=== PATIENT | female | born 1980 ===

== ENCOUNTER 2021-04-10 09:38 | Outpatient (CLI) | payer OTHER | END 2021-04-10 11:53 | disposition home or self-care (01) | LOC: PRENATAL 09:38 | PROVIDERS: ATTEND Obstetrics & Gynecology Maternal & Fetal Medicine | DX: O35.0XX1 Maternal care for (suspected) central nervous system malformation in fetus, fetus 1 (principal); O35.3XX1 Maternal care for (suspected) damage to fetus from viral disease in mother, fetus 1; O98.512 Other viral diseases complicating pregnancy, second trimester; O09.522 Supervision of elderly multigravida, second trimester; Z36.89 Encounter for other specified antenatal screening; Z3A.20 20 weeks gestation of pregnancy ==

== ENCOUNTER 2021-07-05 09:43 | Outpatient (CLI) | payer OTHER | END 2021-07-05 10:45 | disposition home or self-care (01) | LOC: PRENATAL 09:43 | PROVIDERS: ATTEND Obstetrics & Gynecology Maternal & Fetal Medicine | DX: O26.843 Uterine size-date discrepancy, third trimester (principal); O09.523 Supervision of elderly multigravida, third trimester; O36.8131 Decreased fetal movements, third trimester, fetus 1; O35.0XX1 Maternal care for (suspected) central nervous system malformation in fetus, fetus 1; Z36.89 Encounter for other specified antenatal screening; Z3A.33 33 weeks gestation of pregnancy ==

== ENCOUNTER 2021-08-22 06:20 | Inpatient (IN) | payer OTHER ==
[~2021-08-22] VITALS: Ht 160 cm; Wt 3.2 kg
[~2021-08-22 06:20] MED LIST: PRENATAL PO
[2021-08-22] MEDS ORDERED: PROVIDA OB CAP1 EACH (11:19)
[2021-08-22] MEDS ORDERED: ATABEX OB TABL1 EACH (11:19)
== END 2021-08-26 13:07 | disposition home or self-care (01) | DRG 785 ==
LOC: SURG-SUITE 06:20 → O/R 06:20 → OB/GYN 11:45 → SURG-SUITE 14:31
PROVIDERS: ADMIT Obstetrics & Gynecology; ATTEND Obstetrics & Gynecology
PROC: 0UB70ZZ Excision of Bilateral Fallopian Tubes, Open Approach (ICD-10-PCS; 2021-08-22)
PROC: 4A1HXCZ Monitoring of Products of Conception, Cardiac Rate, External Approach (ICD-10-PCS; 2021-08-22)
PROC: 10D00Z1 Extraction of Products of Conception, Low, Open Approach (ICD-10-PCS; principal; 2021-08-22 14:05)
DX: O34.211 Maternal care for low transverse scar from previous cesarean delivery (principal); Z30.2 Encounter for sterilization; Z3A.39 39 weeks gestation of pregnancy; Z37.0 Single live birth; Z20.822 Contact with and (suspected) exposure to COVID-19